=== PATIENT | male | born 1965 | race Caucasian/White ===

== ENCOUNTER 2020-04-25 03:48 | Emergency (ER) | payer SELFPAY ==
[~2020-04-25] VITALS: Ht 180.3 cm; Wt 98.8 kg
--- NOTE | 2020-04-25 04:32 | NUR ---
Pt to ER after having CP for the last 2 weeks. Pt states pain has been gradual and got worse tonight. Pt states tonight pain was radiating to left arm, c/o numbness and tingling to left arm. Pt denies n/v. Pt with LUQ abd pain to palp. Pt on monitor, IV placed. EKG done. Will monitor. Warm blanket given.,
[2020-04-25] MEDS ORDERED: ASPIRIN 81 MG TABLET CHEW ONE (04:49)
[2020-04-25] MEDS ORDERED: ASPIRIN 81 MG TABLET CHEW PO ONE (05:00)
[2020-04-25] MEDS ORDERED: SODIUM CHLORIDE FLUSH 10ML SYR IVF ONE (05:00)
[2020-04-25] MEDS ORDERED: PLEASE ENTER ALLERGIES MC SCH (05:00)
[2020-04-25 05:07] LABS: BASOPHILS % (AUTO) 1 % (0-1); EOSINOPHILS % (AUTO) 2 % (1-7); LYMPHOCYTES % (AUTO) 45 % (22-44); MEAN CORPUSCULAR HEMOGLOBIN 31.1 pg (27.5-34.5); MEAN CORPUSCULAR HGB CONC 33.9 g/dL (33.2-36.2); MEAN PLATELET VOLUME 8.8 fL (7.4-10.4); MONOCYTES % (AUTO) 7 % (2-9); NEUTROPHILS % (AUTO) 46 % (42-75); PLATELET COUNT 204 x10^3/uL (130-400); RED BLOOD COUNT 5.07 x10^6/uL (4.38-5.82); RED CELL DISTRIBUTION WIDTH 15.3 % (9.4-14.8)
[2020-04-25 05:14] LABS: ALANINE AMINOTRANSFERASE 35 U/L (12-78); ALBUMIN 4.1 g/dL (3.4-5.0); ANION GAP 9 mmol/L (5-15); CALCIUM 8.9 mg/dL (8.5-10.1); CHLORIDE 107 mmol/L (98-107); CREATININE 1.07 mg/dL (0.7-1.3)
[2020-04-25 05:19] LABS: ALKALINE PHOSPHATASE 93 U/L (45-117); BILIRUBIN,TOTAL 0.8 mg/dL (0.2-1.0); MD NO; TOTAL PROTEIN 7.5 g/dL (6.4-8.2); TROPONIN I < 0.015 ng/mL (0.000-0.045)
--- NOTE | 2020-04-25 05:28 | NUR ---
Pt states feeling better, having no more shakes, still c/o a little chest tightness. Family in room. Pt calm, A&O. No needs stated at this time.
[2020-04-25] MEDS ORDERED: OMNIPAQUE 350 MG/ML, 75ML BOTTLE ONE (06:56)
--- NOTE | 2020-04-25 06:59 | NUR ---
REPORT FROM KAVON SCOTT.
--- NOTE | 2020-04-25 07:00 | NUR ---
Pt with left sided chest discomfort. Pt ambulated to BR ind without difficulty. Pt back to room, on monitor. Pt then to CT. Pt with stable vs, remains A&O, non labored breathing.
[2020-04-25 07:48] VITALS: BP 118/76
[2020-04-25] MEDS ORDERED: [UNRECOGNIZED DRUG - CODE] IV (07:51)
--- NOTE | 2020-04-25 07:51 | NUR ---
PT RESTING COMFORTABLY WITH AT BEDSIDE AWAITING DISPOSITION. CONTINUED ALL MONITORS. CALL LIGHT WITHIN REACH. NO FURTHER NEEDS AT THIS TIME.
--- NOTE | 2020-04-25 08:32 | NUR ---
Patient/Caregiver given discharge instructions and they have confirmed that they understand the instructions. Patient ambulatory with steady gait.
== END 2020-04-25 08:33 | disposition home or self-care (01) ==
LOC: ED 05:05
DX: R07.89 Other chest pain (principal); F41.1 Generalized anxiety disorder; I44.4 Left anterior fascicular block; R94.31 Abnormal electrocardiogram [ECG] [EKG]; R53.1 Weakness; G43.909 Migraine, unspecified, not intractable, without status migrainosus
CPT/HCPCS: 36415; 71045; 71275; 80053; 83690; 84484; 85025; 93005; 99285; Q9967